=== PATIENT | male | born 1960 | race Caucasian/White ===

== ENCOUNTER 2024-02-04 14:27 | Emergency (ER) | payer OTHER, SELFPAY ==
[2024-02-04 14:30] VITALS: BP 126/78
[2024-02-04 14:41] LABS: Glucose - Point of Care 87 mg/dl (70-99)
[2024-02-04 14:58] VITALS: BMI 26.8
[2024-02-04 15:08] LABS: % Basophils 0.3 % (0-2); % Eosinophils 0.3 % (0-6); % Immature Granulocytes 0.3 % (0-0.5); % Lymphocytes 24.6 % (20.5-51.1); % Monocytes 7.2 % (1.7-9.3); % Neutrophils 67.3 % (42.2-75.2); Absolute Lymphocytes 2.2 10^3/uL (1.2-3.4); Absolute Monocytes 0.7 10^3/uL (0.1-0.6); Absolute Neutrophils 6.1 10^3/uL (1.4-6.5); Hematocrit 44.1 % (39.0-52.0); Mean Corpuscular Hgb 31.3 pg (27.0-31.0); Mean Corpuscular Volume 91.9 fL (80.0-94.0); Mean Platelet Volume 9.2 fL (7.4-10.4); Nucleated Red Blood Cells % 0 % (-); Platelet Count 193 10^3/uL (130-400); Red Cell Dist. Width 13.1 % (11.5-14.5); White Blood Cell Count 9.1 10^3/uL (4.8-10.8)
--- NOTE | 2024-02-04 15:16 | ED.GENMED ---
History of Present Illness
General
Chief Complaint: Change in Mental Status
Source: patient and ambulance crew
Exam Limitations: clinical condition
Time Seen by Provider: 02/04/24 14:44
Travel History
Have you had any contact with someone who has COVID-19?: No
Do you have any symptoms of coronavirus? Fever > 100 degrees, chills, cough, shortness of breath, sore throat, loss of taste or smell, muscle aches, or headache?: No
History of Present Illness
History of Present Illness:
63-year-old male who presents emergency department after he became agitated and confused at home. Started about 630 last night. EMS arrived found to be agitated. He was given droperidol and Versed. He was given 5 mg of each. On my evaluation
the patient is a bit sleepy but offers no complaints. There is no reports of trauma. No reports of pain. EMS does report he is moving all 4 extremities. Patient reportedly is awake alert and oriented and interactive.
Past History
Past History
ED Past Medical History: Other ('Blood clots')
Phy Exam
Physical Exam
Physical Exam:
CONSTITUTIONAL Patient alert and oriented to person. Somnolent but does arouse to voice vital signs reviewed.
HEAD atraumatic, normocephalic.
EYES eyelids normal to inspection, Pupils equally round and reactive to light, Extraocular muscles intact, Conjunctiva normal, Sclera normal.
NECK normal range of motion, Trachea midline, no jugular venous distention.
RESPIRATORY CHEST No respiratory distress noted, Chest expansion equal, Bilateral breath sounds clear.
CARDIOVASCULAR regular rate and rhythm, Heart sounds normal.
ABDOMEN abdomen nontender. No distention.
UPPER EXTREMITY range of motion normal, Motor strength normal, no cyanosis, no edema.
LOWER EXTREMITY range of motion normal, Motor strength normal, no cyanosis, no edema.
NEURO Sleepy but arousable. Appears to move all extremities. Poorly follows commands.
SKIN skin warm, dry, and normal in color.
Course
Orders/Labs/Results
Orders:
Orders
02/04/24
Electrocardiogram (*1) Stat
Reason for Study: Chest Pain
Comment: DONE NO ORDER ENTERED
02/04/24 14:53
Complete Blood Count/With Diff Urgent
UA Reflex to Culture [Urinalysis Reflex To Culture] Urgent
Date Specimen was Collected: 02/04/24
Time Specimen was Collected: 14:48
Urine Drug Abuse Screen Urgent
Date Specimen was Collected: 02/04/24
Time Specimen was Collected: 14:30
Urine Microscopic Reflex Cult Urgent
Urine Culture Urgent
THEODORE Source: U
Specimen Description:
Date Specimen was Collected: 02/04/24
Time Specimen was Collected: 14:48
02/04/24 15:10
CT Head W/o Iv Contrast Urgent
Comment:
Reason For Exam: change in ms
02/04/24 15:20
Alcohol Urgent
Basic Metabolic Panel Urgent
02/04/24 17:43
Crisis Consult Urgent
Reason for Consult: paranoia
02/04/24 19:41
Acetaminophen [Tylenol] 1,000 mg PO NOW STA
Abnormal Lab Results
02/04/24 02/04/24
14:53 15:20
MCH 31.3 H pg
(27.0-31.0)
Absolute Monos (auto) 0.7 H 10^3/uL
(0.1-0.6)
Calcium 11.0 H mg/dl
(8.4-10.2)
Urine Ketones 2+ A
(Negative)
Ur Occult Blood Reflex 1+ A
(Negative)
Leukocyte Esterase Rfl Trace A
(Negative)
Urine RBC 7-10 A /HPF
(0-2)
Urine WBC (Reflex) 21-25 A /HPF
(0-5)
Urine Bacteria (Reflex) Few A
(Negative)
02/04/24 14:53
02/04/24 15:20
Vital Signs
Initial and Last Documented VS:
Initial Vital Signs
Temp Pulse Resp BP Pulse Ox
98.1 F 82 13 126/78 99
02/04/24 14:30 02/04/24 14:30 02/04/24 14:30 02/04/24 14:30 02/04/24 14:30
Last Documented Vital Signs
Temp Pulse Resp BP Pulse Ox
98.1 F 79 18 127/63 96
02/04/24 14:30 02/04/24 20:30 02/04/24 20:30 02/04/24 20:00 02/04/24 20:15
MDM/Problems Addressed
Differential Diagnosis Includes:
Intracranial hemorrhage, brain tumor, metabolic encephalopathy, electrolyte imbalance, renal failure, meningitis, sepsis
MDM/Problems Addressed:
Paranoia, agitation, frontal atrophy
*Radiology
Radiology exam reviewed: radiology read reviewed
*Pulse Oximetry
Patient hypoxic: no
*EKG
Interpreted by ED Provider?: Yes
Interpretation: abnormal
Rate: normal
Rhythm: sinus
Hadley: left axis deviation
Interval: normal interval
QRS Pattern: right bundle branch block (incomplete)
Ischemia: no ischemia
*Critical Care Note
Total Time (30-74mins, 75-104mins- exclusive of procedures): Not Applicable
Data Reviewed
Source: ambulance crew
Patient Management
Escalation/DeEscalation of care consider admission/obs:
Lengthy bedside discussion with patient and . Patient clearly does have some paranoia about many things in his life. He is 'agitated' at many things and blames his for arguing with him. Patient mentions cancer, previous surgery, his
family, daughter's , . Question whether this frontal atrophy is related. Patient has had a 2 in the past. He was also a facility in the past. He was on many different psychiatric medications but stopped taking them. His has been
trying to get him help and saw someone on Wednesday who thought he was just angry. Patient is not suicidal and does not want to be hospitalized. Consult crisis. Anticipate discharge. Medically he appears stable and is calm
Update Note
Update Note:
Patient seen by crisis. Resources given. No indication for 302
ED Attending Note
-
Portions of this chart may have been created with voice recognition software.� Occasional wrong word or��sound alike� substitutions may have occurred due to the inherent limitations of voice recognition software.
Discharge Plan
Departure
Patient Disposition: Home (Routine Discharge)
Date of Disposition: 02/04/24
Time of Disposition: 21:05
Patient with high blood pressure during this ER visit?: No
Discharge Problem:
Agitation
Instructions: Altered Mental Status (DC)
Prescriptions:
No Action
multivitamin Tablet
1 tab PO DAILY
vitamin A 3,000 mcg (10,000 unit) Capsule
3,000 mcg PO DAILY
Xarelto 20 mg tablet
20 mg PO DAILY
Probiotic 3 billion cell Capsule
3,000 mmu cells PO DAILY
vitamin K2 45 mcg Capsule
45 mcg PO DAILY
clomiphene citrate 25 mg capsule
50 mg PO DAILY
turmeric
1,000 mg PO DAILY
vitamin E
180 mg PO DAILY
Referrals:
Prem Willett MD [Family Provider] -
Activity Restrictions/Additional Instructions:
Please see your doctor and/or resources given by crisis in the next 1 week. Return for fevers, changes in mentation or any other concerns.
Interventions
Interventions:
*Risk Screen - Suicide Last Done: 02/04/24 14:30
*General Assessment Last Done: 02/04/24 14:30
*Neglect/Abuse Screening Last Done: 02/04/24 14:30
*ED COVID-19 Vaccine History Last Done: 02/04/24 14:30
ED-Psychological Assessment Last Done: 02/04/24 15:00
ED- Neurological Assessment Last Done: 02/04/24 15:00
ED Swallowing Screen Last Done: 02/04/24 15:00
Discharge Date and Time
Print Language: GREENLANDIC
[2024-02-04 15:42] LABS: Urine Albumin Negative (Neg - Trace); Urine Bilirubin Negative (Negative); Urine Character Clear (Clear); Urine Color Yellow; Urine Glucose Negative (Negative); Urine Ketone 2+ (Negative); Urine Leukocyte Trace (Negative); Urine Nitrite Negative (Negative); Urine Occult Blood 1+ (Negative); Urine Specific Gravity 1.015 (<1.030); Urine Urobilinogen Negative (Neg - 1+)
[2024-02-04 15:46] LABS: Blood Urea Nitrogen 15 mg/dl (9-20); Carbon Dioxide 28 mmol/L (22-30); Chloride 104 mmol/L (98-107); Estimated Creatinine Clearance 90 ml/min; Glucose 89 mg/dl (70-99); Potassium 3.9 mmol/L (3.5-5.1); Sodium 139 mmol/L (135-145); eGFR > 60.00
[2024-02-04 15:47] LABS: Alcohol None Detected
[2024-02-04 15:57] LABS: Amphetamines Negative (Negative); Barbiturates Negative (Negative); Benzodiazepines Negative (Negative); Buprenorphine Negative (Negative); Cocaine Negative (Negative); Marijuana Negative (Negative); Methadone Negative (Negative); Methamphetamines Negative (Negative); Opiates Negative (Negative); Phencyclidine Negative (Negative); Tricyclic Antidepressants Negative (Negative)
[2024-02-04 16:00] VITALS: BP 106/60
--- NOTE | 2024-02-04 16:50 | PHANOTE ---
Med Rec Note:
Pt's spouse asked that pt not receive Zyprexa/Olanzapine due Hallucinations.
[2024-02-04 16:54] LABS: Urine Bacteria Few (Negative); Urine White Cell 21-25 /HPF (0-5)
[2024-02-04 16:55] LABS: Urine Mucus Moderate
[2024-02-04 17:00] VITALS: BP 143/91
[2024-02-04] MEDS: TYLENOL 1000 MG PO (19:47)
[2024-02-04 19:50] VITALS: BP 128/67
[2024-02-04 20:00] VITALS: BP 127/63
[2024-02-04 21:32] VITALS: BP 128/66
== END 2024-02-04 21:37 | disposition home or self-care (01) ==
LOC: EMR 14:27
PROVIDERS: EMERGENCY PHYSICIAN Emergency Medicine; FAMILY PHYSICIAN Family Medicine
DX: R45.1 Restlessness and agitation (principal)
CPT/HCPCS: 99284; 70450; 80048; 80306; 81003; 81015; 82077; 82962; 85025; 87086; 93005

== ENCOUNTER 2024-02-13 09:38 | Emergency (ER) | payer OTHER, SELFPAY ==
[2024-02-13 09:47] VITALS: BP 107/67; BMI 24.4
[2024-02-13 10:06] LABS: % Basophils 0.2 % (0-2); % Eosinophils 0.4 % (0-6); % Immature Granulocytes 0.3 % (0-0.5); % Lymphocytes 16.1 % (20.5-51.1); % Monocytes 5.6 % (1.7-9.3); % Neutrophils 77.4 % (42.2-75.2); Absolute Eosinophils 0.1 10^3/uL (0-0.7); Absolute Monocytes 0.7 10^3/uL (0.1-0.6); Absolute Neutrophils 9.7 10^3/uL (1.4-6.5); Hematocrit 42.6 % (39.0-52.0); Hemoglobin 14.7 g/dL (13.0-18.0); Mean Corp Hgb Conc. 34.5 g/dL (33.0-37.0); Mean Corpuscular Volume 89.9 fL (80.0-94.0); Mean Platelet Volume 9.3 fL (7.4-10.4); Nucleated Red Blood Cells % 0 % (-); Platelet Count 186 10^3/uL (130-400); Red Blood Cell Count 4.74 10^6/uL (4.70-6.10); Red Cell Dist. Width 13.7 % (11.5-14.5); White Blood Cell Count 12.5 10^3/uL (4.8-10.8)
--- NOTE | 2024-02-13 10:08 | ED.GENMED ---
Addendum entered and electronically signed by Mike Shaw DO 02/14/24 14:05:
302 denied. Spoke with the PA the patient can be discharged back home.
2144. Patient's is unable to take him home due to his erratic, labile behavior with emotional distress and paranoia. Patient has been hospitalized in the past for similar episodes. This all started after he was diagnosed with bladder cancer.
Patient required a month hospitalization for similar episode last year. Patient has been evaluated trace by psychiatry and felt not to be a 302. Agree that the patient does not seem to be a potential harm to himself other than his noncompliance
with medication or to his or to others. However his behavior is still labile and erratic believe he needs intervention. Patient has been noncompliant with his medication. There was concern that with the recurrence of his bladder cancer that
this was due to the bladder issues. I asked crisis about the [place] and they said that was not a possibility to Wednesday which is 2 days from now. I do not feel that the patient can go home and will try to convince the patient about 201. Patient
cannot be medically admitted to the hospital.
Addendum entered and electronically signed by Mike Shaw DO 02/14/24 14:04:
ED Attending Note
ED Attending Note
Patient seen and examined by attending physician: Yes
I performed the substantive portion of visit, reviewed & personally made and approve the management plan that is documented in note by myself or LON.: Yes
ED Attending Note:
Patient is 63-year-old male who his brought him to the emergency department because of increasing agitation and emotional lability. Patient has been hospitalized in the past for mental health issues. Patient has recurrence of bladder cancer
and it was thought that maybe the bladder irritation was causing change in mental status. Through speaking with the patient he makes similar accusations about his and that she has OCD has been hospitalized in the past for mental health issues.
Patient was seen by crisis and telepsych. Patient 3 who was denied. Patient is not a danger to himself or others. Have suggested to the patient that he and his not spend the night in the same place tonight and that they need to decide
whether to go forward together or separately. Have suggested the patient call his son or daughter who live nearby to go stay with them. Patient was also offered to stay in the room. Patient wants to go. I do not have a reason to keep the
patient. Patient will be discharged.
-
Portions of this chart may have been created with voice recognition software.� Occasional wrong word or��sound alike� substitutions may have occurred due to the inherent limitations of voice recognition software.
Original Note:
History of Present Illness
General
Chief Complaint: Crisis Evaluation
Source: records, ambulance crew and police
Time Seen by Provider: 02/13/24 09:52
Travel History
Have you had any contact with someone who has COVID-19?: Unable to Answer
Do you have any symptoms of coronavirus? Fever > 100 degrees, chills, cough, shortness of breath, sore throat, loss of taste or smell, muscle aches, or headache?: Unable to Answer
History of Present Illness
History of Present Illness:
63-year-old male presenting to the emergency department via EMS in police for evaluation and ultimately petitioning for a 302. Patient reportedly very agitated at home, had received Haldol and Ativan prior to arrival to the emergency
department. Unable to obtain any further history from the patient. Patient has reportedly been seen at this facility for similar before.
Past History
Past History
ED Past Medical History: Other ('Blood clots')
ED Past Surgical History: None
Social History
Tobacco: Non-smoker
Alcohol: Occasional
Drug: None
Personal:
Living: with family
Review of Systems
Review of Systems
All Other Systems: ROS reviewed and negative except as documented in HPI and ROS
Phy Exam
Physical Exam
Physical Exam:
GENERAL: Sleepy, in no apparent distress
EYE: conjunctiva clear
Head: Normocephalic atraumatic
NECK: Supple,
ENT: mmm.
LUNGS: no acute respiratory distress
NEUROLOGICAL: Not answering questions
SKIN: Warm and dry, skin intact.
MUSCULOSKELETAL: well perfused.
PSYCH: Not answering questions
Scores
Heart Failure Risk
Heart Failure Risk Score: Not Applicable
Heart Score for Chest Pain Patients
STEMI patient?: Not applicable
Withdrawal Assessment of Alcohol
Withdrawal Assessment Completed?: Not applicable
Course
Orders/Labs/Results
Orders:
Orders
02/13/24 09:56
Alcohol Urgent
Basic Metabolic Panel Urgent
COVID-19 Antigen Urgent
Source: Nasal Swab
Complete Blood Count/With Diff Urgent
Abnormal Lab Results
02/13/24
09:56
WBC 12.5 H 10^3/uL
(4.8-10.8)
Absolute Neuts (auto) 9.7 H 10^3/uL
(1.4-6.5)
Absolute Monos (auto) 0.7 H 10^3/uL
(0.1-0.6)
Neutrophils % 77.4 H %
(42.2-75.2)
Lymphocytes % 16.1 L %
(20.5-51.1)
Chloride 110 H mmol/L
(98-107)
BUN 28 H mg/dl
(9-20)
Glucose 118 H mg/dl
(70-99)
Calcium 11.2 H mg/dl
(8.4-10.2)
02/13/24 09:56
02/13/24 09:56
Vital Signs
Initial and Last Documented VS:
Initial Vital Signs
Temp Pulse Resp BP Pulse Ox
99.1 F 83 16 107/67 95
02/13/24 09:47 02/13/24 09:47 02/13/24 09:47 02/13/24 09:47 02/13/24 09:47
Last Documented Vital Signs
Temp Pulse Resp BP Pulse Ox
99.1 F 83 16 107/67 95
02/13/24 09:47 02/13/24 09:47 02/13/24 09:47 02/13/24 09:47 02/13/24 09:47
MDM/Problems Addressed
Differential Diagnosis Includes:
Psychosis, substance abuse, less concern for infectious etiology
MDM/Problems Addressed:
63-year-old male presenting the emergency department for evaluation due to agitation over the last few days. Seen at this emergency department last week and 302 was not upheld and patient was ultimately discharged home. reportedly filing a
302 again today. Patient currently very sleepy which is likely secondary to the Haldol and Ativan he was given on his way to the hospital. We will continue to monitor the patient in the ER and once more awake will consult with our crisis team for
further evaluation and disposition planning.
*Pulse Oximetry
Patient hypoxic: no
*Critical Care Note
Total Time (30-74mins, 75-104mins- exclusive of procedures): Not Applicable
Data Reviewed
Review of Other/Old Records Reveals: Records
Patient Management
Escalation/DeEscalation of care consider admission/obs:
Patient to be dispositioned per [facility]
ED Attending Note
-
Portions of this chart may have been created with voice recognition software.� Occasional wrong word or��sound alike� substitutions may have occurred due to the inherent limitations of voice recognition software.
Discharge Plan
Departure
Patient Disposition: [facility]
Date of Disposition: 02/13/24
Time of Disposition: 11:20
Patient with high blood pressure during this ER visit?: No
Discharge Problem:
Agitation
Prescriptions:
No Action
multivitamin Tablet
1 tab PO DAILY
vitamin A 3,000 mcg (10,000 unit) Capsule
3,000 mcg PO DAILY
Xarelto 20 mg tablet
20 mg PO DAILY
Probiotic 3 billion cell Capsule
3,000 mmu cells PO DAILY
vitamin K2 45 mcg Capsule
45 mcg PO DAILY
clomiphene citrate 25 mg capsule
50 mg PO DAILY
turmeric
1,000 mg PO DAILY
vitamin E
180 mg PO DAILY
lorazepam 1 mg tablet
1 mg PO TID PRN (Reason: agitation) Qty: 12 0RF
Referrals:
Prem Willett MD [Family Provider] -
Interventions
Interventions:
*Risk Screen - Suicide Last Done: 02/13/24 09:47
*General Assessment Last Done: 02/13/24 09:47
*Neglect/Abuse Screening Last Done: 02/13/24 09:47
*ED COVID-19 Vaccine History Last Done: 02/13/24 09:47
ED-Psychological Assessment Last Done: 02/13/24 09:55
Discharge Date and Time
Print Language: WOLOF
[2024-02-13 10:20] LABS: COVID-19 Antigen Negative (Negative)
[2024-02-13 10:24] LABS: Blood Urea Nitrogen 28 mg/dl (9-20); Calcium 11.2 mg/dl (8.4-10.2); Carbon Dioxide 26 mmol/L (22-30); Chloride 110 mmol/L (98-107); Estimated Creatinine Clearance 83 ml/min; Glucose 118 mg/dl (70-99); Potassium 4.3 mmol/L (3.5-5.1); Sodium 144 mmol/L (135-145); eGFR > 60.00
[2024-02-13 10:40] LABS: Alcohol None Detected
[2024-02-13 13:54] VITALS: BP 136/70
--- NOTE | 2024-02-13 19:01 | ED.GENMED ---
History of Present Illness
General
Chief Complaint: Crisis Evaluation
Time Seen by Provider: 02/13/24 09:52
Travel History
Have you had any contact with someone who has COVID-19?: Unable to Answer
Do you have any symptoms of coronavirus? Fever > 100 degrees, chills, cough, shortness of breath, sore throat, loss of taste or smell, muscle aches, or headache?: Unable to Answer
Past History
Past History
ED Past Medical History: Other ('Blood clots')
ED Past Surgical History: None
Social History
Tobacco: Non-smoker
Alcohol: Occasional
Drug: None
Personal:
Living: with family
Course
Orders/Labs/Results
Orders:
Orders
02/13/24 09:56
Alcohol Urgent
Basic Metabolic Panel Urgent
COVID-19 Antigen Urgent
Source: Nasal Swab
Complete Blood Count/With Diff Urgent
02/13/24 19:30
Fentanyl, Urine Urgent
Urinalysis Reflex To Culture Urgent
Date Specimen was Collected: 02/13/24
Time Specimen was Collected: 19:28
Urine Drug Abuse Screen Urgent
Date Specimen was Collected: 02/13/24
Time Specimen was Collected: 19:28
Urine Microscopic Reflex Cult Urgent
Urine Culture Urgent
THEODORE Source: U
Specimen Description:
Date Specimen was Collected: 02/13/24
Time Specimen was Collected: 19:28
Abnormal Lab Results
02/13/24 02/13/24
09:56 19:30
WBC 12.5 H 10^3/uL
(4.8-10.8)
Absolute Neuts (auto) 9.7 H 10^3/uL
(1.4-6.5)
Absolute Monos (auto) 0.7 H 10^3/uL
(0.1-0.6)
Neutrophils % 77.4 H %
(42.2-75.2)
Lymphocytes % 16.1 L %
(20.5-51.1)
Chloride 110 H mmol/L
(98-107)
BUN 28 H mg/dl
(9-20)
Glucose 118 H mg/dl
(70-99)
Calcium 11.2 H mg/dl
(8.4-10.2)
Ur Occult Blood Reflex 2+ A
(Negative)
Leukocyte Esterase Rfl 1+ A
(Negative)
Urine RBC 11-15 A /HPF
(0-2)
Urine WBC (Reflex) 40-50 A /HPF
(0-5)
Urine Bacteria (Reflex) Few A
(Negative)
U Benzodiazepines Scrn Positive H
(Negative)
02/13/24 09:56
02/13/24 09:56
Vital Signs
Initial and Last Documented VS:
Initial Vital Signs
Temp Pulse Resp BP Pulse Ox
99.1 F 83 16 107/67 95
02/13/24 09:47 02/13/24 09:47 02/13/24 09:47 02/13/24 09:47 02/13/24 09:47
Last Documented Vital Signs
Temp Pulse Resp BP Pulse Ox
98.2 F 72 18 121/62 99
02/13/24 13:54 02/13/24 23:21 02/13/24 23:21 02/13/24 23:21 02/13/24 23:21
*Critical Care Note
Total Time (30-74mins, 75-104mins- exclusive of procedures): Not Applicable
ED Attending Note
ED Attending Note
Patient seen and examined by attending physician: Yes
I performed the substantive portion of visit, reviewed & personally made and approve the management plan that is documented in note by myself or LON.: Yes
ED Attending Note:
Patient is 63-year-old male who his brought him to the emergency department because of increasing agitation and emotional lability. Patient has been hospitalized in the past for mental health issues. Patient has recurrence of bladder cancer
and it was thought that maybe the bladder irritation was causing change in mental status. Through speaking with the patient he makes similar accusations about his and that she has OCD has been hospitalized in the past for mental health issues.
Patient was seen by crisis and telepsych. Patient 3 who was denied. Patient is not a danger to himself or others. Have suggested to the patient that he and his not spend the night in the same place tonight and that they need to decide
whether to go forward together or separately. Have suggested the patient call his son or daughter who live nearby to go stay with them. Patient was also offered to stay in the room. Patient wants to go. I do not have a reason to keep the
patient. Patient will be discharged.
-
Portions of this chart may have been created with voice recognition software.� Occasional wrong word or��sound alike� substitutions may have occurred due to the inherent limitations of voice recognition software.
Discharge Plan
Departure
Patient Disposition: Home (Routine Discharge)
Date of Disposition: 02/13/24
Time of Disposition: 11:20
Patient with high blood pressure during this ER visit?: No
Condition: Fair
Covid-19: Not Applicable
Discharge Problem:
Agitation
Instructions: Anxiety, Adult (DC)
Prescriptions:
No Action
multivitamin Tablet
1 tab PO DAILY
vitamin A 3,000 mcg (10,000 unit) Capsule
3,000 mcg PO DAILY
Xarelto 20 mg tablet
20 mg PO DAILY
Probiotic 3 billion cell Capsule
3,000 mmu cells PO DAILY
vitamin K2 45 mcg Capsule
45 mcg PO DAILY
clomiphene citrate 25 mg capsule
50 mg PO DAILY
turmeric
1,000 mg PO DAILY
vitamin E
180 mg PO DAILY
lorazepam 1 mg tablet
1 mg PO TID PRN (Reason: agitation) Qty: 12 0RF
Referrals:
Prem Willett MD [Family Provider] - Follow up in 2-3 days
Activity Restrictions/Additional Instructions:
Continue present medication and therapy.
Interventions
Interventions:
*Risk Screen - Suicide Last Done: 02/13/24 09:47
*General Assessment Last Done: 02/13/24 09:47
*Neglect/Abuse Screening Last Done: 02/13/24 09:47
*ED COVID-19 Vaccine History Last Done: 02/13/24 09:47
*Nursing Disposition Last Done: 02/13/24 23:33
ED-Psychological Assessment Last Done: 02/13/24 09:55
Discharge Date and Time
Discharge Date/Time: 02/13/24 23:33
Print Language: NAMIBIAN
[2024-02-13 19:26] VITALS: BP 99/66
[2024-02-13 19:42] LABS: Urine Albumin Trace (Neg - Trace); Urine Bilirubin Negative (Negative); Urine Character Clear (Clear); Urine Color Yellow; Urine Glucose Negative (Negative); Urine Ketone Negative (Negative); Urine Leukocyte 1+ (Negative); Urine Nitrite Negative (Negative); Urine Occult Blood 2+ (Negative); Urine Urobilinogen Negative (Neg - 1+)
[2024-02-13 19:48] LABS: Amphetamines Negative (Negative); Barbiturates Negative (Negative); Benzodiazepines Positive (Negative); Buprenorphine Negative (Negative); Cocaine Negative (Negative); Marijuana Negative (Negative); Methadone Negative (Negative); Methamphetamines Negative (Negative); Opiates Negative (Negative); Phencyclidine Negative (Negative); Tricyclic Antidepressants Negative (Negative)
[2024-02-13 20:04] LABS: Fentanyl, Urine Negative (Negative)
[2024-02-13 20:21] LABS: Urine Bacteria Few (Negative); Urine Mucus Few; Urine White Cell 40-50 /HPF (0-5)
[2024-02-13 23:21] VITALS: BP 121/62
== END 2024-02-13 23:33 | disposition home or self-care (01) ==
LOC: EMR 09:38
PROVIDERS: Emergency Medicine; EMERGENCY PHYSICIAN Emergency Medicine; FAMILY PHYSICIAN Family Medicine
DX: R45.1 Restlessness and agitation (principal); R45.86 Emotional lability; Z11.52 Encounter for screening for COVID-19; C67.9 Malignant neoplasm of bladder, unspecified; Z91.148 Patient's other noncompliance with medication regimen for other reason; Z79.01 Long term (current) use of anticoagulants
CPT/HCPCS: 99283; 80048; 80306; 80307; 81003; 81015; 82077; 85025; 87086; 87811

== ENCOUNTER 2024-02-14 14:46 | Emergency (ER) | payer OTHER, SELFPAY ==
--- NOTE | 2024-02-14 15:46 | W.PN.UPDATE ---
Update Note
Progress Note Update
Psychiatric evaluation dictated.
Patient is presently acutely psychotic, has rapid flow of speech and looseness of associations including paranoid thoughts. It is impossible to obtain reliable history but I discussed it with his daughter who was the petitioner. He apparently had
similar episode about a year ago after BCG treatment for bladder Ca. Was hospitalized at [facility], than committed to [place] and than attended OP treatment. Zyprexa as well as Seroquel were apparently ineffective.
I will uphold the 302 , give prn Ativan for now.
--- NOTE | 2024-02-14 15:53 | ED.GENMED ---
History of Present Illness
<Marga Pulido TUMBLER OPERATOR - Last Filed: 02/16/24 07:44>
General
Chief Complaint: Crisis Evaluation
Source: patient and previous hospital records
Exam Limitations: none
Time Seen by Provider: 02/14/24 15:50
Nursing documentation reviewed up to this point in time: agreed with
Travel History
Have you had any contact with someone who has COVID-19?: No
Do you have any symptoms of coronavirus? Fever > 100 degrees, chills, cough, shortness of breath, sore throat, loss of taste or smell, muscle aches, or headache?: No
History of Present Illness
History of Present Illness:
63 yo male with hx of HTN, bladder CA, here yesterday for same: erratic, labile behavior with emotional distress and paranoia, reportedly started with similar episodes since being diagnosed with bladder CA. Was hospitalized for a month last year for
similar behaviors. Pt has been noncompliant with his medication. Yesterday he spoke with [employer], 302 was denied at that time. Pt was discharged as there was no medical reason to keep him.
He is back today on 302 per EMS. Crisis consulted and in. They are in process of arranging 302.
Past History
<Marga Pulido TUMBLER OPERATOR - Last Filed: 02/16/24 07:44>
Past History
ED Past Medical History: Other ('Blood clots')
ED Past Surgical History: None
Social History
Tobacco: Non-smoker
Alcohol: Occasional
Drug: None
Personal:
Living: with family
Review of Systems
<Marga Pulido TUMBLER OPERATOR - Last Filed: 02/16/24 07:44>
Review of Systems
Allergies reviewed?: Yes
Other source history: other (pt acutely psychotic)
All Other Systems: ROS reviewed and negative except as documented in HPI and ROS
Constitutional: Denies fever
Respiratory: Denies trouble breathing
ABD/GI: Denies vomiting
Psychiatric: Reports other (acutely psychotic)
Phy Exam
<Marga Pulido, TUMBLER OPERATOR - Last Filed: 02/16/24 07:44>
Physical Exam
Physical Exam:
GENERAL: Patient is talking nonstop, flight of ideas, acutely psychotic
CONSTITUTIONAL: Afebrile.
EYES: Clear, conjunctivae normal
RESPIRATORY: Regular respirations, nonlabored, lungs clear.
CARDIOVASCULAR: Regular rate and rhythm, no murmurs, no rubs.
GI: Soft, nontender
MUSCULOSKELETAL: Moves with ease. Well perfused.
SKIN: Warm, dry, pink
PSYCH: Manic mood and affect. Well kept
NEUROLOGIC: Awake, alert. No focal neurological deficits
Course
<Marga Pulido, TUMBLER OPERATOR - Last Filed: 02/16/24 07:44>
Orders/Labs/Results
Orders:
Orders
02/14/24 15:38
Lorazepam [Ativan] 1 mg PO Q6H PRN
02/14/24 19:36
Haloperidol Lactate [Haldol] 2.5 mg IM NOW STA
02/14/24 19:37
Haloperidol Lactate [Haldol] 5 mg .ROUTE .STK-MED ONE
Lorazepam [Ativan] 1 mg IM NOW STA
Lorazepam [Ativan] 2 mg .ROUTE .STK-MED ONE
02/14/24 19:49
Restraints - Violent As Directed
Restraint Type-: Locked-4 point/4 rails
Apply From (date): 02/14/24
Apply from (time): 19:49
Remove (date): 02/14/24
Remove (time): 23:49
02/14/24 19:54
1:1 Observation - Suicide/ Violent Behavior As Directed
02/15/24 10:34
Acetaminophen [Tylenol] 1,000 mg PO NOW STA
02/15/24 11:00
Rivaroxaban [Xarelto] 20 mg PO QPM
02/15/24 12:00
Buspirone [Buspar] 10 mg PO BID
02/15/24 15:23
Acetaminophen [Tylenol] 1,000 mg .ROUTE .STK-MED ONE
02/15/24 15:24
Acetaminophen [Tylenol] 1,000 mg PO Q6HPRN PRN
02/15/24 16:10
Benztropine [Cogentin] 1 mg PO [id number] PRN
02/15/24 20:00
Haloperidol [Haldol] 2 mg PO BID
Vital Signs
Initial and Last Documented VS:
Initial Vital Signs
Temp Pulse Resp Pulse Ox
98.0 F 104 18 100
02/14/24 15:28 02/14/24 15:28 02/14/24 15:28 02/14/24 15:28
Last Documented Vital Signs
Temp Pulse Resp BP Pulse Ox
98.0 F 83 18 158/82 97
02/17/24 07:54 02/17/24 07:54 02/17/24 07:54 02/17/24 07:54 02/17/24 07:54
Justinelt;Mike Shaw, DO - Last Filed: 02/14/24 20:10>
Orders/Labs/Results
Orders:
Orders
02/14/24 15:38
Lorazepam [Ativan] 1 mg PO Q6H PRN
02/14/24 19:36
Haloperidol Lactate [Haldol] 2.5 mg IM NOW STA
02/14/24 19:37
Haloperidol Lactate [Haldol] 5 mg .ROUTE .STK-MED ONE
Lorazepam [Ativan] 1 mg IM NOW STA
Lorazepam [Ativan] 2 mg .ROUTE .STK-MED ONE
02/14/24 19:49
Restraints - Violent As Directed
Restraint Type-: Locked-4 point/4 rails
Apply From (date): 02/14/24
Apply from (time): 19:49
Remove (date): 02/14/24
Remove (time): 23:49
02/14/24 19:54
1:1 Observation - Suicide/ Violent Behavior As Directed
02/15/24 10:34
Acetaminophen [Tylenol] 1,000 mg PO NOW STA
02/15/24 11:00
Rivaroxaban [Xarelto] 20 mg PO QPM
02/15/24 12:00
Buspirone [Buspar] 10 mg PO BID
02/15/24 15:23
Acetaminophen [Tylenol] 1,000 mg .ROUTE .STK-MED ONE
02/15/24 15:24
Acetaminophen [Tylenol] 1,000 mg PO Q6HPRN PRN
02/15/24 16:10
Benztropine [Cogentin] 1 mg PO [id number] PRN
02/15/24 20:00
Haloperidol [Haldol] 2 mg PO BID
Vital Signs
Initial and Last Documented VS:
Initial Vital Signs
Temp Pulse Resp Pulse Ox
98.0 F 104 18 100
02/14/24 15:28 02/14/24 15:28 02/14/24 15:28 02/14/24 15:28
Last Documented Vital Signs
Temp Pulse Resp BP Pulse Ox
98.0 F 83 18 158/82 97
02/17/24 07:54 02/17/24 07:54 02/17/24 07:54 02/17/24 07:54 02/17/24 07:54
<Roberto Carlos Mathew, DO - Last Filed: 02/17/24 10:11>
Orders/Labs/Results
Orders:
Orders
02/14/24 15:38
Lorazepam [Ativan] 1 mg PO Q6H PRN
02/14/24 19:36
Haloperidol Lactate [Haldol] 2.5 mg IM NOW STA
02/14/24 19:37
Haloperidol Lactate [Haldol] 5 mg .ROUTE .STK-MED ONE
Lorazepam [Ativan] 1 mg IM NOW STA
Lorazepam [Ativan] 2 mg .ROUTE .STK-MED ONE
02/14/24 19:49
Restraints - Violent As Directed
Restraint Type-: Locked-4 point/4 rails
Apply From (date): 02/14/24
Apply from (time): 19:49
Remove (date): 02/14/24
Remove (time): 23:49
02/14/24 19:54
1:1 Observation - Suicide/ Violent Behavior As Directed
02/15/24 10:34
Acetaminophen [Tylenol] 1,000 mg PO NOW STA
02/15/24 11:00
Rivaroxaban [Xarelto] 20 mg PO QPM
02/15/24 12:00
Buspirone [Buspar] 10 mg PO BID
02/15/24 15:23
Acetaminophen [Tylenol] 1,000 mg .ROUTE .STK-MED ONE
02/15/24 15:24
Acetaminophen [Tylenol] 1,000 mg PO Q6HPRN PRN
02/15/24 16:10
Benztropine [Cogentin] 1 mg PO [id number] PRN
02/15/24 20:00
Haloperidol [Haldol] 2 mg PO BID
Vital Signs
Initial and Last Documented VS:
Initial Vital Signs
Temp Pulse Resp Pulse Ox
98.0 F 104 18 100
02/14/24 15:28 02/14/24 15:28 02/14/24 15:28 02/14/24 15:28
Last Documented Vital Signs
Temp Pulse Resp BP Pulse Ox
98.0 F 83 18 158/82 97
02/17/24 07:54 02/17/24 07:54 02/17/24 07:54 02/17/24 07:54 02/17/24 07:54
<Marga Pulido, TUMBLER OPERATOR - Last Filed: 02/16/24 07:44>
MDM/Problems Addressed
MDM/Problems Addressed:
63 yo male with hx of HTN, bladder CA, here yesterday for same: erratic, labile behavior with emotional distress and paranoia, reportedly started with similar episodes since being diagnosed with bladder CA. Was hospitalized for a month last year for
similar behaviors. Pt has been noncompliant with his medication. Yesterday he spoke with [employer], 302 was denied at that time. Pt was discharged as there was no medical reason to keep him.
He is back today on 302 per EMS. Crisis consulted and in. They are in process of arranging 302.
Yesterday's lab work reviewed, mild leukocytosis and U/A with WBC's discussed with Dr. Shaw who cared for pt yesterday and states most likely due to bladder ca recurrence and pt just finished a regimen of antibiotics.No treatment indicated
at this point.
Psychiatrist Dr. Simmons in and upheld 302
7:37 p.m.
Has been talking nonstop entire shift, refusing po Ativan
Starting to escalate, yelling, striking furniture
Dr. Shaw aware and recommends Haldol 2.5 mg and Ativan 1 mg IM
11:30 p.m.
Case discussed with Dr. Tracy who will assume care from this point
Chronic conditions affecting care: HTN and Psychiatric illness
<Marga Pulido, TUMBLER OPERATOR - Last Filed: 02/16/24 07:44>
*Critical Care Note
Total Time (30-74mins, 75-104mins- exclusive of procedures): Not Applicable
<Roberto Carlos Mathew DO - Last Filed: 02/17/24 10:11>
Update Note
Update Note:
Update/crisis note for 02/17/2024�patient is still pending placement and is awaiting 303 hearing tomorrow
ED Attending Note
<Marga Pulido TUMBLER OPERATOR - Last Filed: 02/16/24 07:44>
-
Portions of this chart may have been created with voice recognition software.� Occasional wrong word or��sound alike� substitutions may have occurred due to the inherent limitations of voice recognition software.
<Mike Shaw, DO - Last Filed: 02/14/24 20:10>
ED Attending Note
Patient seen and examined by attending physician: Yes
I performed the substantive portion of visit, reviewed & personally made and approve the management plan that is documented in note by myself or LON.: Yes
ED Attending Note:
Is a 63-year-old male who was seen by me last night for mental health issues. Patient returns once again for 302. However this time it has been upheld. Patient is volatile as well as labile and appears to be increasingly agitated and paranoid.
Patient began acting out yelling and striking out. Patient will be sedated and placed in restraints. Patient rambles and confabulates and has become increasingly threatening. Patient should be 302. I reviewed the labs from yesterday. Patient
does have a history of bladder cancer I believe that accounts for the abnormalities in his urine. There is nothing that would preclude the patient from psychiatric admission from a medical standpoint and from my standpoint he is medically cleared.
Discharge Plan
Departure
Patient Disposition: Psych Facility
Date of Disposition: 02/16/24
Time of Disposition: 06:50
Discharge Problem:
Acute psychosis
Prescriptions:
No Action
multivitamin Tablet
1 tab PO DAILY
vitamin A 3,000 mcg (10,000 unit) Capsule
3,000 mcg PO DAILY
Xarelto 20 mg tablet
20 mg PO DAILY
Probiotic 3 billion cell Capsule
3,000 mmu cells PO DAILY
vitamin K2 45 mcg Capsule
45 mcg PO DAILY
turmeric
1,000 mg PO DAILY
vitamin E
180 mg PO DAILY
lorazepam 1 mg tablet
1 mg PO TID PRN (Reason: agitation) Qty: 12 0RF
acetaminophen 500 mg Tablet
1,000 mg PO Q6H PRN (Reason: pain)
buspirone 10 mg Tablet
10 mg PO BID
Referrals:
Prem Willett MD [Family Provider] -
Interventions
Interventions:
*Risk Screen - Suicide Last Done: 02/14/24 16:48
*General Assessment Last Done: 02/14/24 14:48
*Neglect/Abuse Screening Last Done: 02/14/24 16:48
ED- Fall Risk Assessment Last Done: 02/15/24 08:00
*ED COVID-19 Vaccine History Last Done: 02/14/24 16:48
ED-Psychological Assessment Last Done: 02/15/24 08:00
Discharge Date and Time
Print Language: MOLDOVAN
[2024-02-14] MEDS: ATIVAN 1 MG IM (19:40)
[2024-02-14] MEDS: HALDOL 2.5 MG IM (19:40)
[2024-02-14 22:25] VITALS: BP 136/77
[2024-02-15 07:00] VITALS: BMI 28.1
[2024-02-15 08:04] VITALS: BP 139/79
[2024-02-15] MEDS: TYLENOL 1000 MG PO ×3 (10:34→22:06)
[2024-02-15] MEDS: BUSPAR 10 MG PO ×2 (11:36→22:06)
[2024-02-15] MEDS: XARELTO 20 MG PO (11:38)
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
[2024-02-15] MEDS: HALDOL 2 MG PO (20:36)
[2024-02-15 20:58] VITALS: BP 172/90
[2024-02-16] MEDS: ATIVAN 1 MG PO ×2 (05:16→20:15)
--- NOTE | 2024-02-16 06:51 | ED.CRISIS ---
ED Crisis Note
ED Crisis Note
Subjective:
63yo with psychosis. did not sleep much through the night. resting comfortably
Objective:
no acute distress.
Assessment/Plan:
Appreciate psychiatric input. Await placement
[2024-02-16 08:25] VITALS: BMI 26.5
[2024-02-16 08:28] VITALS: BP 162/86
[2024-02-16] MEDS: BUSPAR 10 MG PO ×2 (08:29→20:13)
[2024-02-16] MEDS: HALDOL PO (08:31)
--- NOTE | 2024-02-16 13:54 | W.PN.UPDATE ---
Update Note
Progress Note Update
patient seen chart reviewed. reviewed extensively detailed comprehensive assessment by sheet metal production worker lenny mancuso. the patient since mother's day has been more and more affectively labile delusional and paranoid. he has been threatening hence the
302 commitment which was upheld by psychiatry. he had been given haldol and ativan as he was agitated at the time of admission and haldol 2 mg bid was prescribed but he has been taking occasional ativan. when i saw him today the patient talked non
stop with barely a moment for me to get a word in edgewise. his conversation revolved around two topics basically his financial success which he says is prodigious and his disdain for his daughter's son. he did say she would never hurt him
physically but clearly he is very resentful of him and feels he has ruined his d's life. my efforts to tell him that his d is an adult and has the right to make her own choices fell on deaf ears. he verbalized that he wants to leave. we are still
seeking a psych bed for him. he does seem to me to be psychotic. we may need to do a 303 hearing on wednesday but i will talk w d tomorrow prior to pursuing a 303
[2024-02-16] MEDS: TYLENOL 1000 MG PO ×2 (14:05→20:15)
[2024-02-16] MEDS: XARELTO 20 MG PO (19:41)
[2024-02-16] MEDS: HALDOL 2 MG PO (20:21)
[2024-02-17 07:54] VITALS: BP 158/82
[2024-02-17] MEDS: HALDOL PO (07:58)
[2024-02-17 08:00] VITALS: BMI 26.5
[2024-02-17] MEDS: TYLENOL 1000 MG PO ×2 (08:06→14:02)
[2024-02-17] MEDS: BUSPAR 10 MG PO ×2 (08:07→20:52)
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
[2024-02-17] MEDS: XARELTO 20 MG PO (18:39)
[2024-02-18] MEDS: ATIVAN 1 MG PO (00:58)
[2024-02-18] MEDS: TYLENOL 1000 MG PO ×3 (01:00→13:57)
[2024-02-18 08:00] VITALS: BP 145/71; BMI 27.4
[2024-02-18] MEDS: BUSPAR 10 MG PO (08:12)
--- NOTE | 2024-02-18 11:56 | W.PN.UPDATE ---
Update Note
Progress Note Update
patient seen chart reviewed. mr funk remains much the same hyperverbal w pressured speech delusional and paranoid. 303 hearing held this am . his son the petitioner testified about the allegations in the 302. patient was committed to up to 20
days in patient psychiatric treatment. there is a potential bed at [place] and hopefully he will be transferred there today. he continues to refuse to take mood stabillizing medication.
== END 2024-02-18 15:59 ==
LOC: EMR 14:46
PROVIDERS: EMERGENCY PHYSICIAN Emergency Medicine; FAMILY PHYSICIAN Family Medicine; OTHER PHYSICIAN Psychiatry & Neurology Psychiatry
DX: F23 Brief psychotic disorder (principal); I10 Essential (primary) hypertension; Z85.51 Personal history of malignant neoplasm of bladder; Z91.148 Patient's other noncompliance with medication regimen for other reason
CPT/HCPCS: 99285; 96372; 93005